=== PATIENT | male | born 1940 | race American Indian/Alaskan Native ===

== ENCOUNTER 2022-03-01 18:06 | Emergency (ER) | payer OTHER ==
[2022-03-01 18:30] VITALS: BP 160/97; PULSE 77
[2022-03-01 19:20] LABS: ANION GAP 13.2 mEq/L (7-13)
== END 2022-03-01 20:52 | disposition home or self-care (01) ==
LOC: DL.ED 18:06
DX: S80.01XA Contusion of right knee, initial encounter (principal); S80.02XA Contusion of left knee, initial encounter; S50.02XA Contusion of left elbow, initial encounter; J44.9 Chronic obstructive pulmonary disease, unspecified; E11.9 Type 2 diabetes mellitus without complications; E78.00 Pure hypercholesterolemia, unspecified; I10 Essential (primary) hypertension; R91.8 Other nonspecific abnormal finding of lung field; Z79.82 Long term (current) use of aspirin; Z79.899 Other long term (current) drug therapy; Z79.01 Long term (current) use of anticoagulants; W18.30XA Fall on same level, unspecified, initial encounter
CPT/HCPCS: 36415; 70450; 72125; 73070-LT; 73560-LT; 73562-RT; 80053; 81001; 83735; 85025; 85610; 99284-25

== ENCOUNTER 2022-10-29 13:32 | Emergency (ER) | payer OTHER ==
[2022-10-29 14:21] VITALS: BP 147/95; PULSE 115
[2022-10-29] MEDS: Sodium Chloride 0.9% 10 ML Syringe FLUSH PRN ×3 (14:36→17:12)
[2022-10-29 15:04] LABS: PTT,PARTIAL THROMBOPLSTIN TIME 28.7 SEC (22.0-34.0)
[2022-10-29 15:07] LABS: ANION GAP 15.5 mEq/L (7-13); CHLORIDE,CL 104 mmol/L (98-107); SODIUM,NA 140 mmol/L (136-145)
[2022-10-29 15:10] LABS: ESTIMATED GFR 85 mL/min (>=60)
[2022-10-29] MEDS ORDERED: Furosemide 40 MG/4 ML VIAL IVPUSH ONE (15:21)
[2022-10-29] MEDS ORDERED: Potassium Chloride 10 MEQ Tab.ER PO ONE (15:22)
== END 2022-10-29 18:40 | disposition home or self-care (01) ==
LOC: DL.ED 13:32
DX: R09.02 Hypoxemia (principal); C34.90 Malignant neoplasm of unspecified part of unspecified bronchus or lung; J44.9 Chronic obstructive pulmonary disease, unspecified; I10 Essential (primary) hypertension; E11.9 Type 2 diabetes mellitus without complications; E78.00 Pure hypercholesterolemia, unspecified; Z79.82 Long term (current) use of aspirin
CPT/HCPCS: 36415; 71045; 80053; 81001; 83735; 83880; 84145; 84484; 85025; 85610; 85651; 85730; 86140; 93005; 93010; 96374; 99285; A9270; J1642; J1940; J3490

== ENCOUNTER 2022-11-07 16:17 | Inpatient (IN) | payer OTHER ==
[2022-11-07] MEDS: Sodium Chloride 0.9% 10 ML Syringe FLUSH PRN (16:49)
[2022-11-07 17:25] LABS: ANION GAP 13.6 mEq/L (7-13)
[2022-11-07 17:33] VITALS: BP 143/84; PULSE 114
[2022-11-07] MEDS: Metoprolol Tartrate 5 MG/5 ML SDV IVPUSH ONE (17:33)
[2022-11-07 17:35] LABS: CORONAVIRUS COVID-19 NAA NEGATIVE (NEGATIVE); RESPIRATORY SYNCYTIAL VIR NAA NEGATIVE (NEGATIVE)
[2022-11-07 17:57] LABS: PTT,PARTIAL THROMBOPLSTIN TIME 35.7 SEC (22.0-34.0)
[2022-11-07] MEDS: Furosemide 40 MG/4 ML VIAL IVPUSH ONE (18:06)
[2022-11-07 18:51] LABS: O2 DELIVERY DEVICE NASAL CANNULA
[2022-11-07 18:52] LABS: PCO2 VENOUS 34 mmHg (41-51); PH,VENOUS 7.46 (7.31-7.41)
[2022-11-07 18:53] LABS: BASE EXCESS VENOUS 0 mmol/l ((-2)-(+3)); BICARBONATE,VENOUS 24 mmol/l (19-25); O2 SATURATION VENOUS 61 % (60-80); PO2 VENOUS 30 mmHg (35-42)
[2022-11-07] MEDS ORDERED: Acetaminophen/HYDROcodone 325-5 MG Tab PO PRN (19:33)
[2022-11-07] MEDS ORDERED: Polyethylene Glycol 3350 Powder 17 GM Packet PO PRN (19:33)
[2022-11-07] MEDS ORDERED: Ondansetron 4 MG/2 ML SDV IVPUSH PRN (19:33)
[2022-11-07] MEDS ORDERED: Albuterol/Ipratropium 3.0-0.5 MG/3 ML Neb Soln NEB PRN (19:33)
[2022-11-07] MEDS ORDERED: Acetaminophen 325 MG Tab PO PRN (19:33)
[2022-11-07] MEDS ORDERED: HYDROmorphone 0.5 MG/0.5 ML Syringe IVPUSH PRN (19:33)
[2022-11-07] MEDS ORDERED: Magnesium Hydroxide 400 MG/5 ML Susp 30 ML Cup PO PRN (19:33)
[2022-11-07] MEDS ORDERED: Sodium Chloride 0.9% 10 ML Syringe FLUSH PRN (19:33)
[2022-11-07] MEDS ORDERED: Bisacodyl 5 MG Tab PO PRN (19:33)
[2022-11-07] MEDS ORDERED: Docusate Sodium 100 MG Cap PO PRN (19:33)
[2022-11-07] MEDS ORDERED: Metoprolol Tartrate 5 MG/5 ML SDV IVPUSH PRN (19:37)
[2022-11-07] MEDS ORDERED: hydrALAZINE 20 MG/ML SDV IVPUSH PRN (19:37)
[2022-11-07] MEDS ORDERED: guaiFENesin/Dextromethorphan 100-10 MG/5 ML Soln 5 ML Cup PO PRN (19:39)
[2022-11-07] MEDS ORDERED: Dexamethasone 4 MG/ML SDV IVPUSH ONE (19:47)
[2022-11-07] MEDS ORDERED: Piperacillin/Tazobactam 3.375 GM in Sodium Chloride 0.9% 100 ML IV SCH (20:00)
[2022-11-07] MEDS: Morphine 2 MG/ML SYRINGE IVPUSH PRN (20:05)
[2022-11-07] MEDS ORDERED: Naloxone 2 MG/2 ML Syringe ONE (20:22)
[2022-11-07] MEDS ORDERED: Docusate Sodium 100 MG Cap PO SCH (21:00)
[2022-11-07] MEDS ORDERED: Enoxaparin 40 MG/0.4 ML Syringe SUBCUT SCH (21:00)
[2022-11-07] MEDS ORDERED: Tamsulosin 0.4 MG Cap.ER PO SCH (21:00)
[2022-11-07] MEDS ORDERED: Saccharomyces Boulardii (Probiotic) 250 MG Cap PO SCH (21:00)
[2022-11-07] MEDS ORDERED: Sodium Chloride 0.9% 10 ML Syringe FLUSH SCH (21:00)
[2022-11-07] MEDS ORDERED: Sertraline 50 MG Tab PO SCH (21:00)
[2022-11-07] MEDS ORDERED: Metoprolol Tartrate 25 MG Tab PO SCH (21:00)
[2022-11-07] MEDS ORDERED: EPINEPHrine 1:10,000 1 MG/10 ML Syringe ONE (21:14)
[2022-11-07] MEDS ORDERED: Sodium Bicarbonate 8.4% 50 MEQ/50 ML Syringe IV ONE (23:58)
[2022-11-07] MEDS ORDERED: EPINEPHrine 1:10,000 1 MG/10 ML Syringe IV ONE (23:58)
[2022-11-07] MEDS ORDERED: Sodium Chloride 0.9% 1,000 ML IV ONE (23:58)
[2022-11-07] MEDS ORDERED: Magnesium Sulfate (4.06 MEQ/ML) 1 GM/2 ML SDV IV ONE (23:58)
[2022-11-07] MEDS ORDERED: Amiodarone 150 MG/3 ML SDV IV ONE (23:58)
[2022-11-08] MEDS ORDERED: Dexamethasone 4 MG Tab PO SCH (09:00)
[2022-11-08] MEDS ORDERED: Multivitamin Tab PO SCH (09:00)
[2022-11-08] MEDS ORDERED: Finasteride 5 MG Tab PO SCH (09:00)
[2022-11-08] MEDS ORDERED: Non-Formulary Medication 1 Each (Alogliptin Benzoate [Alogliptin] 25 MG Tablet) PO SCH (09:00)
[2022-11-08] MEDS ORDERED: Aspirin 81 MG Tab.EC PO SCH (09:00)
[2022-11-08] MEDS ORDERED: Non-Formulary Medication 1 Each (Empagliflozin [Jardiance] 25 MG Tablet) PO SCH (09:00)
== END 2022-11-07 23:59 | disposition expired | DRG 871 ==
LOC: DL.ED 16:17 → DL.MS 19:04
PROVIDERS: ADMIT Internal Medicine; ATTEND Internal Medicine
PROC: 5A12012 Performance of Cardiac Output, Single, Manual (ICD-10-PCS; principal; 2022-11-07)
PROC: 3E03329 Introduction of Other Anti-infective into Peripheral Vein, Percutaneous Approach (ICD-10-PCS; 2022-11-07)
PROC: 0BH17EZ Insertion of Endotracheal Airway into Trachea, Via Natural or Artificial Opening (ICD-10-PCS; 2022-11-07)
DX: A41.9 Sepsis, unspecified organism (principal); J18.9 Pneumonia, unspecified organism; J96.01 Acute respiratory failure with hypoxia; J44.0 Chronic obstructive pulmonary disease with (acute) lower respiratory infection; J44.1 Chronic obstructive pulmonary disease with (acute) exacerbation; C34.02 Malignant neoplasm of left main bronchus; C34.12 Malignant neoplasm of upper lobe, left bronchus or lung; I47.20 Ventricular tachycardia, unspecified; D64.81 Anemia due to antineoplastic chemotherapy; Z20.822 Contact with and (suspected) exposure to COVID-19; E11.65 Type 2 diabetes mellitus with hyperglycemia; E66.9 Obesity, unspecified; E88.09 Other disorders of plasma-protein metabolism, not elsewhere classified; I46.9 Cardiac arrest, cause unspecified; H54.7 Unspecified visual loss; E78.5 Hyperlipidemia, unspecified; I25.10 Atherosclerotic heart disease of native coronary artery without angina pectoris; I34.0 Nonrheumatic mitral (valve) insufficiency; N40.0 Benign prostatic hyperplasia without lower urinary tract symptoms; I10 Essential (primary) hypertension; F32.A Depression, unspecified; T45.1X5A Adverse effect of antineoplastic and immunosuppressive drugs, initial encounter; G89.29 Other chronic pain; M81.0 Age-related osteoporosis without current pathological fracture; H91.90 Unspecified hearing loss, unspecified ear; N32.81 Overactive bladder; Z96.649 Presence of unspecified artificial hip joint; Z96.659 Presence of unspecified artificial knee joint; E78.00 Pure hypercholesterolemia, unspecified; Z68.32 Body mass index [BMI] 32.0-32.9, adult; Z95.5 Presence of coronary angioplasty implant and graft; Z87.891 Personal history of nicotine dependence; Z79.82 Long term (current) use of aspirin; Z79.899 Other long term (current) drug therapy; Z79.01 Long term (current) use of anticoagulants; Z95.2 Presence of prosthetic heart valve; Z98.890 Other specified postprocedural states; Z92.3 Personal history of irradiation
CPT/HCPCS: 0241U; 36415; 71045; 80053; 81001; 82306; 82803; 83605; 83735; 83880; 84145; 84484; 85025; 85379; 85610; 85730; 86140; 87040; 87070; 87077; 87186; 87205; 93005; 93010; 96374; 96375; 99285; 99285-25; J0171; J0282; J1940; J2270; J3475; J3490; J7030